=== PATIENT | female | born 1990 | race Two or more races ===

== ENCOUNTER 2016-06-03 23:34 | Emergency (ER) | payer OTHER ==
[~2016-06-03] VITALS: Ht 157.5 cm; Wt 59.0 kg
[2016-06-04] MEDS ORDERED: BIRTH CONTROL
[2016-06-04 00:38] LABS: BASOPHILS # (AUTO) 0.1 /CMM (0.0-0.2); BASOPHILS % (AUTO) 0.7 % (0.0-2.0); DIFF TOTAL % 100 %; EOSINOPHILS # (AUTO) 0.1 /CMM (0.0-0.7); EOSINOPHILS % (AUTO) 1.3 % (0.0-6.0); HEMATOCRIT 40 % (33-45); HEMOGLOBIN 13.1 g/dL (11.5-14.8); LYMPHOCYTES # (AUTO) 2.9 /CMM (0.8-4.8); LYMPHOCYTES % (AUTO) 36.7 % (20.0-44.0); MEAN CORPUSCULAR HEMOGLOBIN 30 PG (26.0-33.0); MEAN CORPUSCULAR HGB CONC 33 g/dl (31.0-36.0); MEAN CORPUSCULAR VOLUME 91 fL (82-100); MONOCYTES # (AUTO) 0.7 /CMM (0.1-1.30); MONOCYTES % (AUTO) 8.7 % (2.0-12.0); NEUTROPHILS # (AUTO) 4.2 /CMM (1.8-8.9); NEUTROPHILS % (AUTO) 52.6 % (43.0-81.0); PLATELET COUNT (AUTO) 351 /CMM (150-450); RED BLOOD CELL COUNT(AUTO) 4.36 MIL/uL (4.0-5.2)
[2016-06-04 00:48] LABS: CALCIUM, SERUM 8.8 mg/dL (8.5-10.1); CREATININE 0.8 mg/dL (0.6-1.3); POTASSIUM 3.9 mmol/L (3.5-5.1)
[2016-06-04 01:06] LABS: ALBUMIN 3.7 g/dL (3.4-5.0); BILIRUBIN,TOTAL 0.1 mg/dL (0.2-1.0)
[2016-06-04 01:11] LABS: INDIRECT BILIRUBIN 0.1 mg/dL (0.0-1.1)
[2016-06-04 02:20] VITALS: BP 108/58
== END 2016-06-04 02:22 | disposition home or self-care (01) ==
LOC: ER 23:36
DX: R10.13 Epigastric pain (principal); R07.89 Other chest pain; Z88.0 Allergy status to penicillin
CPT/HCPCS: 36415; 71010; 76705; 80048; 80076; 83690; 84703; 85025; 93005; 99285; A4606; Z7610

== ENCOUNTER 2017-07-17 21:58 | Emergency (ER) | payer OTHER ==
[~2017-07-17] VITALS: Ht 160 cm; Wt 61.7 kg
[~2017-07-17 21:58] MED LIST: BIRTH CONTROL
--- NOTE | 2017-07-17 23:00 | NUR ---
26 YO FEMALE BB SELF. PATIENT IS ALERT AND ORIENTED X 3, C/O LEFT SIDED FLANK PAIN X 2 HOURS. PATIENT AMBULATED TO ER BED, SKIN WARM AND DRY, RESP EVEN AND UNLABORED. AWAITING ORDERS FROM PROVIDER, WILL CONTINUE TO MONITOR
[2017-07-17] MEDS ORDERED: KETOROLAC TROMETHAMINE INJ 30 MG/ML VIAL ONE (23:37)
[2017-07-18] LABS: APPEARANCE,URINE CLEAR (CLEAR); BILIRUBIN,URINE NEGATIVE (NEGATIVE); BLOOD, URINE TRACE-INTA Ery/uL (NEGATIVE); COLOR,URINE YELLOW (YELLOW); KETONES,URINE NEGATIVE (NEGATIVE); LEUKOCYTE ESTERASE ,URINE NEGATIVE (NEGATIVE); NITRITE, URINE NEGATIVE (NEGATIVE); PROTEIN,URINE NEGATIVE (NEGATIVE); UGLUCOSE NEGATIVE (NEGATIVE); UROBILINOGEN,URINE 0.2 EU/dL (0.2)
[2017-07-18] MEDS ORDERED: KETOROLAC TROMETHAMINE INJ 60 MG/2 ML VIAL IM ONE
[2017-07-18 00:13] LABS: BACTERIA,URINE None seen /HPF (None Seen); RBC,URINE 0-2 /HPF (0-2); SQUAMOUS EPITHELIAL CELL,UR Rare /HPF (None Seen); WBC,URINE 0-2 /HPF (0-3)
[2017-07-18] MEDS ORDERED: ONDANSETRON HCL/PF 4 MG/2 ML VIAL ONE (00:24)
[2017-07-18] MEDS ORDERED: MORPHINE SULFATE INJ 4 MG/ML DISP.SYRIN ONE (00:25)
--- NOTE | 2017-07-18 00:36 | NUR ---
PER MD, INITIAL PAIN MEDICAITON WAS MORPHINE 4MG WITH ZOFRAN 4 MG. MD CANCELED ORDER FOR PAIN. WASTED MORPHINE 4 MG WITH CHARGE NURSE VINH. RETURNED ZOFRAN 4MG
--- NOTE | 2017-07-18 01:20 | NUR ---
PT OK TO DISCHARGE PER DR MARS. Patient discharged to home in stable condition. Written and verbal after care instructions given. Patient verbalizes understanding of instruction.Patient is awake and alert to self, day, and place. PT ambulatory with a steady gait
[2017-07-18 02:01] VITALS: BP 118/68
== END 2017-07-18 01:30 | disposition home or self-care (01) ==
LOC: ER 22:03
DX: R10.31 Right lower quadrant pain (principal); Z88.0 Allergy status to penicillin
CPT/HCPCS: 81000-TC; 84703-TC; A4606; J1885; J2270; J2405; Z7610